=== PATIENT | female | born 1990 | race Caucasian/White ===

== ENCOUNTER 2020-06-28 06:09 | Emergency (ER) | payer OTHER ==
[~2020-06-28] VITALS: Ht 165.1 cm; Wt 73.9 kg
[2020-06-28 06:11] VITALS: Ht 165.1 cm; Wt 73.9 kg
[2020-06-28 06:43] VITALS: BP 137/95
== END 2020-06-28 06:43 | disposition other institution (70) ==
LOC: ED 06:09
DX: Z02.89 Encounter for other administrative examinations (principal)